=== PATIENT | male | born 1950 | race Caucasian/White ===

== ENCOUNTER 2017-04-07 14:31 | Emergency (ER) | payer OTHER ==
[~2017-04-07] VITALS: Ht 182.9 cm; Wt 108.0 kg
[~2017-04-07 14:31] MED LIST: ELIQUIS5 MG PO; HYDROCHLOROTHIA25 MG PO; SIMVASTATIN20 MG PO; ZYBAN 150 MG T150 MG PO
[2017-04-07 14:52] LABS: POINT-OF-CARE METER ID UU13113778
[2017-04-07 15:34] LABS: HEMATOCRIT 48.9 % (38.0-50.0); MCH 29.5 PG (29.0-34.0); MCHC 32.7 G/DL (30.0-36.0); MCV 90.1 FL (86-99); MEAN PLAT.VOLUME 11.7 uM^3 (9.0-12.4); PLATELET COUNT 161 K/uL (156-360); RBC DIS.WIDTH-CV 13.1 % (11.8-14.6); RBC DIS.WIDTH-SD 42.8 % (39-53); RED BLOOD COUNT 5.43 M/uL (4.00-5.50); WHITE BLOOD COUNT 6.3 K/uL (4.1-10.2)
[2017-04-07 15:55] LABS: TROP-I INTERPRETATION NEGATIVE; TROPONIN-I < 0.01 ng/mL (0.0-0.30)
[2017-04-07 16:04] LABS: CHLORIDE 107 mEq/L (99-109); POTASSIUM 4.3 mEq/L (3.7-5.4); SODIUM 137 mEq/L (136-147)
[2017-04-07 16:05] LABS: GLUCOSE 117 mg/dL (70-99)
[2017-04-07 16:07] LABS: ANION GAP 13 MEQ/L (2-14)
[2017-04-07 16:09] LABS: GFR ESTIMATE (CALCULATED) > 59 mL/min/
[2017-04-07 16:10] LABS: UREA NITROGEN (BUN) 17 mg/dL (9-23)
[2017-04-07 19:26] VITALS: BP 154/83
== END 2017-04-07 19:27 | disposition home or self-care (01) ==
LOC: EME 14:31
DX: E86.0 Dehydration (principal); R42 Dizziness and giddiness; I10 Essential (primary) hypertension; E78.5 Hyperlipidemia, unspecified; I73.9 Peripheral vascular disease, unspecified; Z87.891 Personal history of nicotine dependence
CPT/HCPCS: 70450; 80048; 82948; 84484; 85027; 93005; 99281; 99285; J3360; J7030